=== PATIENT | male | born 1955 | race Caucasian/White ===

== ENCOUNTER 2025-01-18 13:47 | Outpatient (AMB) | payer MEDICARE, OTHER, SELFPAY ==
--- NOTE | 2025-01-18 14:23 | MHC.OFFVIS ---
Intake Visit Reasons: 1 yr follow up Allergies No Known Allergies Allergy (Verified 01/18/25 14:26) Medication List - Last Reconciled 01/18/25 by Aimee Vázquez CNP bupropion HCl SR 150 mg PO BID carbamazepine 200 mg PO BID empagliflozin (Jardiance) 25 mg PO DAILY insulin glargine (Basaglar KwikPen U-100 Insulin) 80 units subcut BEDTIME lisinopril 2.5 mg PO DAILY lorazepam 1 - 2 mg PO omeprazole 20 mg PO DAILY semaglutide (Ozempic) 1 mg subcut QWEEK sertraline 50 mg PO DAILY simvastatin 40 mg PO BEDTIME HPI Comments Details: 69-year-old man with HTN, HLD, diabetes and peripheral neuropathy causing pain treated with carbamazepine. He was doing okay. He was having more feeling of stiffness in legs from thighs down over the last few months. He had chronic LBP and was waiting for MRI to be scheduled. No falls. Sleep was okay. Mood was okay. Blood sugar has been okay. [facility] Medical History (Updated 01/18/25 @ 14:26 by Aimee Vázquez CNP) Meralgia paresthetica Lumbar spondylosis DARIUS (obstructive sleep apnea) Obesity Neuropathic pain Diabetic neuropathy Review of Systems Const Denies chills, Denies daytime sleepiness, Denies difficulty sleeping, Denies fatigue, Denies fever(s), Denies frequent falls, Denies headache(s), Denies increased appetite, Denies poor appetite, Denies snoring, Denies weakness, Denies weight gain and Denies weight loss Eyes Denies loss of vision ENT Denies vertigo, Denies dizziness and Denies headache(s) Card Denies chest pain at rest, Denies chest pain with activity, Denies syncope, Denies leg edema and Denies palpitations Resp Denies snoring GI Denies constipation, Denies heartburn, Denies diarrhea and Denies nausea Denies urinary frequency, Denies urinary incontinence and Denies urinary urgency Musc Denies abnormal gait, Reports numbness and Reports tingling Skin/Breast Denies dry skin and Denies rash Neuro Denies abnormal gait, Denies vertigo, Denies dizziness, Denies syncope, Denies frequent falls, Denies headache(s), Denies lack of coordination, Denies loss of vision, Denies memory loss, Reports numbness, Denies restless legs, Denies seizure-like activity, Reports tingling, Denies paresthesias, Denies tremor(s) and Denies weakness Psych Denies anxiety, Denies depression, Denies auditory hallucinations, Denies memory loss, Denies visual hallucinations and Denies suicidal ideation Endo Denies fatigue and Denies palpitations Physical Exam Const Other: General Appearance:? normal, in no acute distress. Skin:? no rashes, no significant birthmarks. Heart:? S1, S2 normal, no murmurs. Lungs:? clear anteriorly and posteriorly. Extremities:? no edema. Psych:? alert, oriented, cognitive function intact, cooperative with exam. Neuro Other: Mental Status:?Normal attention, orientation, memory and affect.? Cranial Nerves:?Pupils are equal, round and reactive to light. External occular muscles are intact. Visual carrion are full. Face is symmetrical. Facial sensations are normal. Tongue is midline. Palate elevates symmetrically. Shoulder shrugging is normal. Hearing to bedside conversation is normal. Coordination:?No ataxia,?no titubation.? Gait Exam: Within normal limits. Extrapyramidal System:?No tremor, rigidity with normal facial expressions.? Pronator Drift:?Not present.? Involuntary Movements:?No tremors seen.? Speech:?Normal.? Results Reviewed Results Reviewed: MRI LS spine at [facility] in Jan 2020: Diff DJD, mild mod spondylosis EMG/NCS in office in 2010: mild axonal SM PN EMG/NCS in office in 2004: mild axonal SM PN. Assessment & Plan Assessment & Plan (1) Neuropathic pain: Code(s): M79.2 - Neuralgia and neuritis, unspecified Category: Medical Plan: May increase carbamazepine 200mg 1 tablet three times a day. NCV/EMG BLE ordered. (2) Diabetic neuropathy: Code(s): E11.40 - Type 2 diabetes mellitus with diabetic neuropathy, unspecified Category: Medical Qualifiers: Diabetes mellitus type: type 2 Diabetes mellitus complication detail: diabetic polyneuropathy Qualified Code(s): E11.42 - Type 2 diabetes mellitus with diabetic polyneuropathy Plan . Orders: Orders NE electromyogram (EMG) Today E11.42 - Type 2 diabetes mellitus with diabetic polyneuropathy NE nerve conduction velocity Today E11.42 - Type 2 diabetes mellitus with diabetic polyneuropathy Medications: Changed From carbamazepine 200 mg PO BID To carbamazepine 200 mg PO TID 270 tabs 1RF 90 days Coding Level of Care Code Est Pt Level 4 (57854) Diagnoses Neuropathic pain M79.2 Diabetic polyneuropathy associated with type 2 diabetes mellitus E11.42 Diabetes mellitus type: type 2 Diabetes mellitus complication detail: diabetic polyneuropathy
== END 2025-01-18 14:41 | disposition home or self-care (01) ==
LOC: HO.HSM 13:47
PROVIDERS: PCP Physician Assistant Medical; Visit Provider Registered Nurse
DX: M79.2 Neuralgia and neuritis, unspecified (principal); E11.42 Type 2 diabetes mellitus with diabetic polyneuropathy
CPT/HCPCS: 99214

== ENCOUNTER → 2025-01-18 13:47 | Outpatient (BNVA) | payer MEDICARE, OTHER, SELFPAY | PROVIDERS: PCP Physician Assistant Medical; Visit Provider Registered Nurse | DX: M79.2 Neuralgia and neuritis, unspecified (principal); E11.42 Type 2 diabetes mellitus with diabetic polyneuropathy | CPT/HCPCS: 99212 ==

== ENCOUNTER 2025-02-09 09:40 | Outpatient (REF) | payer MEDICARE, OTHER, SELFPAY ==
--- NOTE | 2025-02-09 09:45 | EMG_ITS ---
Chief complaint: Diabetic neuropathy Referred by:?Aimee Vázquez NP Procedure done: Bilateral lower extremities NCS/EMG Bilateral tibial and peroneal motor studies were performed with F responses and tibial H reflexes. Bilateral superficial peroneal and sural sensory studies were performed. Needle examination was performed. Findings: Motor amplitudes were moderately reduced with mild slowing of conduction velocity. Sensory amplitudes were absent to minimal with slow conduction velocity. H reflexes were absent. Impression: Moderately severe axonal, sensory and motor chronic peripheral neuropathy Codin 11677 2 extremities MTDD
== END 2025-02-09 09:41 | disposition home or self-care (01) ==
LOC: HO.NEURO 09:40
PROVIDERS: PCP Physician Assistant Medical; Visit Provider Registered Nurse
DX: E11.42 Type 2 diabetes mellitus with diabetic polyneuropathy (principal)
CPT/HCPCS: 95886; 95911

== ENCOUNTER → 2025-02-09 09:45 | Outpatient (BNV) | payer MEDICARE, OTHER, SELFPAY | PROVIDERS: PCP Physician Assistant Medical; Visit Provider Psychiatry & Neurology Neurology | DX: E11.42 Type 2 diabetes mellitus with diabetic polyneuropathy (principal) | CPT/HCPCS: 95886; 95910 ==